=== PATIENT | male | born 1995 | race African-American/Black ===

== ENCOUNTER 2018-09-21 01:59 | Emergency (ER) | payer OTHER ==
[~2018-09-21] VITALS: Ht 182.9 cm; Wt 74.8 kg
[2018-09-21 02:18] VITALS: BP 126/82
--- NOTE | 2018-09-21 02:18 | NUR ---
ED Nurse Note: Pt arrived ED from home. C/o left flank pain today. Pt is A/O X4. Vital signs stable at this time, waitng for orders.
[2018-09-21] MEDS ORDERED: Ketorolac 30mg Inj IV ONE (02:45)
--- NOTE | 2018-09-21 03:01 | NUR ---
ED Nurse Note: Blood collected and sent to Lab.
--- NOTE | 2018-09-21 03:10 | NUR ---
ED Nurse Note: Meds given as ordered.
[2018-09-21 03:15] LABS: BASOPHILS % (AUTO) 1.6 % (0.0-2.0); EOSINOPHILS % (AUTO) 3.5 % (0.0-3.0); HEMATOCRIT 46.1 % (42.0-52.0); HEMOGLOBIN 15.4 G/DL (14.2-18.0); LYMPHOCYTES % (AUTO) 40.5 % (20.0-45.0); MEAN CORPUSCULAR VOLUME 96 FL (80-99); MONOCYTES % (AUTO) 10.5 % (1.0-10.0); NEUTROPHILS % (AUTO) 43.9 % (45.0-75.0); PLATELET COUNT 185 K/UL (150-450); WHITE BLOOD COUNT 6.2 K/UL (4.8-10.8)
[2018-09-21 03:22] LABS: APPEARANCE,URINE CLEAR; BILIRUBIN, URINE NEGATIVE (NEGATIVE); COLOR,URINE PALE YELLOW; GLUCOSE, URINE (UA) NEGATIVE (NEGATIVE); KETONES,URINE NEGATIVE (NEGATIVE); LEUKOCYTE ESTERASE ,URINE 1+ (NEGATIVE); NITRITE,URINE NEGATIVE (NEGATIVE); PH,URINE 7 (4.5-8.0); PROTEIN,URINE NEGATIVE (NEGATIVE); UROBILINOGEN,URINE NORMAL MG/DL (0.0-1.0)
[2018-09-21 03:27] LABS: ANION GAP 10 mmol/L (5-15); BLOOD UREA NITROGEN 17 mg/dL (7-18); CALCIUM 9.3 MG/DL (8.5-10.1); CARBON DIOXIDE 28 MMOL/L (21-32); CHLORIDE 104 MMOL/L (98-107); POTASSIUM 3.8 MMOL/L (3.5-5.1); SODIUM 142 MMOL/L (136-145)
[2018-09-21 03:31] LABS: ALANINE AMINOTRANSFERASE 31 U/L (12-78); ALBUMIN 4.6 G/DL (3.4-5.0); ALBUMIN/GLOBULIN RATIO 1.5 (1.0-2.7); ALKALINE PHOSPHATASE 64 U/L (46-116); ASPARTATE AMINO TRANSFERASE 25 U/L (15-37); BILIRUBIN,TOTAL 0.6 MG/DL (0.2-1.0); CREATINE KINASE 308 U/L (26-308)
--- NOTE | 2018-09-21 03:38 | Diagnostic Imaging Report ---
EXAM: XR Abdomen, 2 Views CLINICAL HISTORY: Flank. TECHNIQUE: Frontal view of the abdomen/pelvis with upright view of the abdomen. COMPARISON: No relevant prior studies available. FINDINGS: Intraperitoneal space: No evidence of free air. Gastrointestinal tract: Nonspecific bowel gas pattern. No significantly dilated bowel loops seen. Colonic stool noted. Bones/joints: Unremarkable. Other: No abnormal calcifications visualized in the abdomen or pelvis. IMPRESSION: 1. Nonspecific bowel gas pattern. 2. No abnormal calcifications visualized in the abdomen or pelvis.
--- NOTE | 2018-09-21 05:26 | Emergency Room Report ---
History of Present Illness General Chief Complaint: Lower Back Pain or Injury Source: Patient Present Illness HPI Patient was drinking heavily and went to bed. He was awake and last night with severe left flank pain. This is worse when he moved. The pain is persistent although discussed somewhat better. It is constant and radiates somewhat to his left groin area. Denies any fevers, nausea, vomiting or diarrhea. He is unaware of any trauma that might have occurred. He has no history of renal stones in the past. He denies dysuria or hematuria. He states he had a lot to drink the night before. He does not get drunk every night. He is never had pain like this before. He rates the pain 6/10 aching. He does not remember twisting his back. Allergies: Coded Allergies: No Known Allergies (Unverified , 09/21/18) Patient History Past Medical History: see triage record Social History: Reports: smoking, alcohol use Social History Narrative [employer] and other jobs Reviewed Nursing Documentation: PMH: Agreed; PSxH: Agreed Nursing Documentation-PMH Past Medical History: No Stated History Review of Systems All Other Systems: negative except mentioned in HPI Physical Exam Vital Signs Date Time Temp Pulse Resp B/P (MAP) Pulse Ox O2 Delivery O2 Flow Rate FiO2 09/21/18 02:00 98.4 69 12 123/80 98 Room Air Sp02 EP Interpretation: reviewed, normal General Appearance: well appearing, no apparent distress, GCS 15 Head: normocephalic Eyes: bilateral eye normal inspection, bilateral eye PERRL ENT: moist mucus membranes Neck: supple Respiratory: lungs clear, normal breath sounds Cardiovascular #1: regular rate, rhythm Cardiovascular #2: 2+ radial (R) Gastrointestinal: normal inspection, normal bowel sounds, non tender, no mass, non-distended, scaphoid Genitourinary: CVA tenderness (L) Musculoskeletal: gait/station normal, normal range of motion, pelvis stable, tender Neurologic: alert, oriented x3, motor strength/tone normal, DTRs symmetric, sensory intact, cerebellar normal, normal gait, speech normal Psychiatric: mood/affect normal Skin: normal inspection, warm/dry Medical Decision Making Diagnostic Impression: Primary Impression: Left flank pain ER Course Patient presents with left flank pain. Differential includes renal stone, back strain, muscle spasm, pyelonephritis amongst others. Evaluation will be with labs and abdominal film. The patient is treated with Toradol. Labs unremarkable. X-rays without abnormality of the spine or calcifications. Discussed findings with patient. He is improved with Toradol. Was advised of the need for follow-up. Patient stable for outpatient observation and treatment. Laboratory Tests Test 09/21/18 02:40 09/21/18 02:45 White Blood Count 6.2 K/UL (4.8-10.8) Red Blood Count 4.80 M/UL (4.70-6.10) Hemoglobin 15.4 G/DL (14.2-18.0) Hematocrit 46.1 % (42.0-52.0) Mean Corpuscular Volume 96 FL (80-99) Mean Corpuscular Hemoglobin 32.1 PG (27.0-31.0) H Mean Corpuscular Hemoglobin Concent 33.5 G/DL (32.0-36.0) Red Cell Distribution Width 12.0 % (11.6-14.8) Platelet Count 185 K/UL (150-450) Mean Platelet Volume 6.4 FL (6.5-10.1) L Neutrophils (%) (Auto) 43.9 % (45.0-75.0) L Lymphocytes (%) (Auto) 40.5 % (20.0-45.0) Monocytes (%) (Auto) 10.5 % (1.0-10.0) H Eosinophils (%) (Auto) 3.5 % (0.0-3.0) H Basophils (%) (Auto) 1.6 % (0.0-2.0) Prothrombin Time 10.3 SEC (9.30-11.50) Prothrombin Time INR 1.0 (0.9-1.1) PTT 28 SEC (23-33) Sodium Level 142 MMOL/L (136-145) Potassium Level 3.8 MMOL/L (3.5-5.1) Chloride Level 104 MMOL/L (98-107) Carbon Dioxide Level 28 MMOL/L (21-32) Anion Gap 10 mmol/L (5-15) Blood Urea Nitrogen 17 mg/dL (7-18) Creatinine 1.0 MG/DL (0.55-1.30) Estimate Glomerular Filtration Rate > 60 mL/min (>60) Glucose Level 91 MG/DL (74-106) Calcium Level 9.3 MG/DL (8.5-10.1) Total Bilirubin 0.6 MG/DL (0.2-1.0) Aspartate Amino Transferase (AST) 25 U/L (15-37) Alanine Aminotransferase (ALT) 31 U/L (12-78) Alkaline Phosphatase 64 U/L (46-116) Total Creatine Kinase 308 U/L (26-308) Total Protein 7.6 G/DL (6.4-8.2) Albumin 4.6 G/DL (3.4-5.0) Globulin 3.0 g/dL Albumin/Globulin Ratio 1.5 (1.0-2.7) Lipase 134 U/L (73-393) Urine Color Pale yellow Urine Appearance Clear Urine pH 7 (4.5-8.0) Urine Specific [place] 1.010 (1.005-1.035) Urine Protein Negative (NEGATIVE) Urine Glucose (UA) Negative (NEGATIVE) Urine Ketones Negative (NEGATIVE) Urine Blood Negative (NEGATIVE) Urine Nitrite Negative (NEGATIVE) Urine Bilirubin Negative (NEGATIVE) Urine Urobilinogen Normal MG/DL (0.0-1.0) Urine Leukocyte Esterase 1+ (NEGATIVE) H Urine RBC 0-2 /HPF (0 - 0) H Urine WBC 0-2 /HPF (0 - 0) Urine Squamous Epithelial Cells Occasional /LPF Urine Bacteria Occasional /HPF (NONE) Other X-Ray Diagnostic Results Other X-Ray Diagnostic Results : X-Ray ordered: abd # of Views/Limited Vs Complete: 2 View Indication: Pain Interpretation: nonspecific bowel gas, no sbo, other - non masses Impression: Other Electronically Signed by: Electronically signed by Abelardo Perez MD Last Vital Signs Date Time Temp Pulse Resp B/P (MAP) Pulse Ox O2 Delivery O2 Flow Rate FiO2 09/21/18 05:35 98.2 78 12 128/80 98 Room Air Status: improved Disposition: HOME, SELF-CARE Condition: Improved Scripts Methocarbamol* (ROBAXIN*) 500 Mg Tablet 500 MG PO TID, #10 TAB 0 Refills Prov: Abelardo Perez MD 09/21/18 Ibuprofen* (MOTRIN*) 600 Mg Tablet 600 MG ORAL Q6H PRN for For Pain, #20 TAB Prov: Abelardo Perez MD 09/21/18 Tramadol Hcl* (ULTRAM*) 50 Mg Tablet 50 MG ORAL Q6H PRN for For Pain, #8 TAB 0 Refills Prov: Abelardo Perez MD 09/21/18 Referrals: [facility],REFERRING (PCP) Abelardo Perez MD Sep 21, 2018 05:26
[2018-09-21] MEDS ORDERED: IBUPROFEN600 MG ORAL (05:30)
[2018-09-21] MEDS ORDERED: TRAMADOL HCL50 MG ORAL (05:30)
[2018-09-21] MEDS ORDERED: ROBAXIN500 MG PO (05:30)
[2018-09-21 05:35] VITALS: BP 128/80
--- NOTE | 2018-09-21 05:35 | NUR ---
ED Nurse Note: Pt has seen by Dr. Perez. all orders carried out, Pt is ready for discharge, D/c instruction and prescription given to Pt and verbalized understanding. Iv/ID band removed. Pt is d/c from ED with steady gait and all his belongings.
== END 2018-09-21 05:35 | disposition home or self-care (01) ==
LOC: EMR 02:11
DX: R10.9 Unspecified abdominal pain (principal)
CPT/HCPCS: 36415; 74018; 80053; 81003; 82550; 83690; 85025; 85610; 85730; 96361; 96374; 99284; J1885